=== PATIENT | female | born 1980 | race Caucasian/White ===

== ENCOUNTER 2017-06-07 06:57 | Emergency (ER) | payer BC, OTHER ==
[2017-06-07] MEDS ORDERED: Ketorolac Tromethamine 30 MG/ML VIAL ONE (07:18)
--- NOTE | 2017-06-07 07:40 | RAD ---
CHEST PA AND LATERAL: HISTORY: A 37-year-old female with chest pain. FINDINGS: Heart size is within normal limits. There are some linear parenchymal horizontal to slightly obliqu e linear changes in mid and lower lung zones bilaterally, probably secondary to subsegmental atelect asis versus mild chronic change. No confluent pneumonia. IMPRESSION: Bilateral oblique and linear horizontal parenchymal changes. Evidence for subsegmental atelectasis or possibly some chronic change versus very minimal early or developing pneumonitis. No confluent p neumonia, cardiomegaly, pleural effusion, or other acute process. POS: [facility]
== END 2017-06-07 07:53 | disposition home or self-care (01) ==
LOC: NAV ERS 06:57
DX: M94.0 Chondrocostal junction syndrome [Tietze] (principal); G43.909 Migraine, unspecified, not intractable, without status migrainosus; F32.9 Major depressive disorder, single episode, unspecified; Z79.899 Other long term (current) drug therapy
CPT/HCPCS: 71020; 93005; 96372; J1885

== ENCOUNTER 2018-05-22 06:54 | Emergency (ER) | payer BC, OTHER ==
--- NOTE | 2018-05-22 07:39 | RAD ---
CHEST PA AND LATERAL: HISTORY: A 38-year-old female with a history of cough and TB exposure. COMPARISON: 06/07/17. FINDINGS: Heart size is normal. The lungs are clear. No pneumonia, edema, or pleural effusion. IMPRESSION: No acute intrathoracic disease. No evidence for active TB. Stable from prior study. POS: [facility]
== END 2018-05-22 07:45 | disposition home or self-care (01) ==
LOC: NAV ERS 06:54
DX: J20.9 Acute bronchitis, unspecified (principal); Z20.1 Contact with and (suspected) exposure to tuberculosis; K21.9 Gastro-esophageal reflux disease without esophagitis; G43.909 Migraine, unspecified, not intractable, without status migrainosus; F32.9 Major depressive disorder, single episode, unspecified; Z79.899 Other long term (current) drug therapy
CPT/HCPCS: 71046